=== PATIENT | female | born 1960 | race Caucasian/White ===

== ENCOUNTER 2018-08-15 17:02 | Inpatient (IN) ==
--- NOTE | 2018-08-15 17:26 | ED ---
HPI General Chief Complaint: Chest Pain Stated Complaint: chest pain Time Seen by Provider: 08/15/18 17:09 History of Present Illness HPI narrative: Patient is a 58-year-old female with no significant past medical history, presented to the emergency room for chest pain radiating to her jaw, started an hour and half ago, constant. 7 out of 10 in intensity, with minimal shortness of breath. She denies fever, cough, abdominal pain. Pain is not reproducible, no changes with movement or deep breath. EKG shows ST depression in lateral leads. Related Data Home Medications Medication Instructions Recorded Confirmed No Known Home Medications 08/15/18 08/15/18 Allergies Allergy/AdvReac Type Severity Reaction Status Date / Time codeine Allergy Mild NAUSEA Verified 08/15/18 17:11 Review of Systems ROS: all other systems reviewed are negative Cardiovascular Reports chest pain and Reports chest pain at rest [facility] Medical History Medical History Patient denies medical problems (Acute) Surgical History Surgical History No history of previous surgery (Acute) Social History Social History Substance History: No History of Abuse Smoking Status: Current every day smoker Tobacco Type: Cigarettes How Often Do You Have a Drink Containing Alcohol: 2 to 4 times a month Recent Travel in [facility] within the Last 8 Weeks: No Recent Out of Country Travel within the Last 8 Weeks: No Immunization History Tetanus Immunization: Unsure Exam Narrative Exam Narrative: GENERAL: 58-year-old female in no apparent distress. SKIN: Focused skin assessment warm/dry. HEAD: Atraumatic. Normocephalic. EYES: Pupils equal and round. No scleral icterus. No injection or drainage. ENT: No nasal bleeding or discharge. Mucous membranes pink and moist. NECK: Trachea midline. No JVD. CARDIOVASCULAR: Regular rate and rhythm. RESPIRATORY: No accessory muscle use. Clear to auscultation. Breath sounds equal bilaterally. GASTROINTESTINAL: Abdomen soft, non-tender, nondistended. Hepatic and splenic margins not palpable. MUSCULOSKELETAL: No obvious deformities. No clubbing. No cyanosis. No edema. NEUROLOGICAL: Awake and alert. No obvious cranial nerve deficits. Motor grossly within normal limits. Normal speech. PSYCHIATRIC: Appropriate mood and affect; insight and judgment normal. Course Initial Documented Vital Signs Pulse Rate 71 08/15/18 17:05 Last Documented Vital Signs Pulse Rate 71 08/15/18 18:37 Respiratory Rate 18 08/15/18 18:37 Blood Pressure 114/71 08/15/18 18:37 Pulse Oximetry 96 08/15/18 18:37 Medical Decision Making MDM Narrative Medical decision making narrative: 58-year-old female presented with chest pain did not seem to have jaw, with minimal dyspnea for the last an hour and half. Aspirin and nitroglycerin given. Cardiac workup ordered. Reevaluation is pending. 1820: EKG shows ST depression in anterior lateral leads, first set of troponin is negative pain significantly improved, case discussed with [facility] accepted for observation. Medical Screen Exam Complete: Yes Emergency Medical Condition: Yes Differential Diagnosis Differential Diagnosis: Chest pain rule out ACS versus pulmonary embolism versus gastritis. Lab Data Result diagrams: 08/15/18 17:30 08/15/18 17:30 Lab Results 08/15/18 08/15/18 08/15/18 Range/Units 17:30 17:30 17:30 CBC w Diff Auto diff final WBC 7.8 (4.0-11.0) th/mm3 RBC 4.64 (4.00-5.30) mil/mm3 Hgb 14.7 (11.6-15.3) gm/dL Hct 42.3 (35.0-46.0) % MCV 91.1 (80.0-100.0) fL MCH 31.7 (27.0-34.0) pg MCHC 34.8 (32.0-36.0) % RDW 13.5 (11.6-17.2) % Plt Count 248 (150-450) th/mm3 MPV 8.2 (7.0-11.0) fL Neut % (Auto) 58.5 (16.0-70.0) % Lymph % (Auto) 29.8 (9.0-44.0) % [place] % (Auto) 8.3 H (0.0-8.0) % Eos % (Auto) 2.7 (0.0-4.0) % Baso % (Auto) 0.7 (0.0-2.0) % Neut # (Auto) 4.6 (1.8-7.7) th/mm3 Lymph # (Auto) 2.3 (1.0-4.8) th/mm3 [place] # (Auto) 0.6 (0.0-0.9) th/mm3 Eos # (Auto) 0.2 (0.0-0.4) th/mm3 Baso # (Auto) 0.1 (0.0-0.2) th/mm3 WBC Differential . Differential Comment . D-Dimer Quant (PE/DVT) 0.22 (0.00-0.50) mg/L FEU Sodium 139 (136-145) meq/L Potassium 3.3 L (3.5-5.1) meq/L Chloride 105 (98-107) meq/L Carbon Dioxide 25.2 (21.0-32.0) meq/L Anion Gap 9 (5-15) meq/L BUN 18 (7-18) mg/dL Creatinine 0.83 (0.50-1.00) mg/dL Estimated GFR 71 L (>89) mL/min Random Glucose 115 H (74-106) mg/dL Calcium 8.9 (8.5-10.1) mg/dL Total Bilirubin 0.3 (0.2-1.0) mg/dL AST 21 (15-37) U/L ALT 28 (10-53) U/L Alkaline Phosphatase 63 (45-117) U/L Troponin I Less than 0.02 L (0.02-0.05) ng/mL B-Natriuretic Peptide (0-100) pg/mL Total Protein 7.0 (6.4-8.2) g/dL Albumin 3.6 (3.4-5.0) g/dL 08/15/18 Range/Units 17:30 CBC w Diff WBC (4.0-11.0) th/mm3 RBC (4.00-5.30) mil/mm3 Hgb (11.6-15.3) gm/dL Hct (35.0-46.0) % MCV (80.0-100.0) fL MCH (27.0-34.0) pg MCHC (32.0-36.0) % RDW (11.6-17.2) % Plt Count (150-450) th/mm3 MPV (7.0-11.0) fL Neut % (Auto) (16.0-70.0) % Lymph % (Auto) (9.0-44.0) % [place] % (Auto) (0.0-8.0) % Eos % (Auto) (0.0-4.0) % Baso % (Auto) (0.0-2.0) % Neut # (Auto) (1.8-7.7) th/mm3 Lymph # (Auto) (1.0-4.8) th/mm3 [place] # (Auto) (0.0-0.9) th/mm3 Eos # (Auto) (0.0-0.4) th/mm3 Baso # (Auto) (0.0-0.2) th/mm3 WBC Differential Differential Comment D-Dimer Quant (PE/DVT) (0.00-0.50) mg/L FEU Sodium (136-145) meq/L Potassium (3.5-5.1) meq/L Chloride (98-107) meq/L Carbon Dioxide (21.0-32.0) meq/L Anion Gap (5-15) meq/L BUN (7-18) mg/dL Creatinine (0.50-1.00) mg/dL Estimated GFR (>89) mL/min Random Glucose (74-106) mg/dL Calcium (8.5-10.1) mg/dL Total Bilirubin (0.2-1.0) mg/dL AST (15-37) U/L ALT (10-53) U/L Alkaline Phosphatase (45-117) U/L Troponin I (0.02-0.05) ng/mL B-Natriuretic Peptide 8 (0-100) pg/mL Total Protein (6.4-8.2) g/dL Albumin (3.4-5.0) g/dL Imaging Data Radiologist's impression: Chest X-Ray 08/15/18 17:22 CONCLUSION: Mild increased interstitial markings are noted consistent with acute or chronic interstitial disease. Clinical correlation is recommended. ECG Data EKG Prior to Arrival: No Attestation: I personally reviewed and interpreted this ECG as follows: Prior ECG tracings: available for review Interpretation: Normal sinus rhythm at rate 71, no ST elevation, ST depression in anterior lateral leads consider anterior lateral ischemia. Unable to compared to previous EKG. Discharge Plan Discharge Disposition Patient Disposition: ED Admit(ED Internal Use Only) Discharge Condition Condition: Fair Discharge Order Discharge Orders: ED Use Only Admit Order (Routine); Ordered 08/15/18 Ordered By: Anton Valenzuela Physicians Team ED Provider: Anton Valenzuela Primary Care Provider: Primary Care Homa De Los Santos Attending Provider: Mario Bell Status ED Status: Admitted Observation Patient
[2018-08-15 17:38] LABS: Baso # (Auto) 0.1 th/mm3 (0.0-0.2); Baso % (Auto) 0.7 % (0.0-2.0); Eos # (Auto) 0.2 th/mm3 (0.0-0.4); Eos % (Auto) 2.7 % (0.0-4.0); Hematocrit 42.3 % (35.0-46.0); Hemoglobin 14.7 gm/dL (11.6-15.3); Lymph # (Auto) 2.3 th/mm3 (1.0-4.8); Lymph % (Auto) 29.8 % (9.0-44.0); Mean Corpuscular HGB Conc 34.8 % (32.0-36.0); Mean Corpuscular Hemoglobin 31.7 pg (27.0-34.0); Mean Corpuscular Volume 91.1 fL (80.0-100.0); Mean Platelet Volume 8.2 fL (7.0-11.0); Mono # (Auto) 0.6 th/mm3 (0.0-0.9); Mono % (Auto) 8.3 % (0.0-8.0); Neut # (Auto) 4.6 th/mm3 (1.8-7.7); Neut % (Auto) 58.5 % (16.0-70.0); Platelet Count 248 th/mm3 (150-450); Red Blood Count 4.64 mil/mm3 (4.00-5.30); Red Cell Distribution Width 13.5 % (11.6-17.2); White Blood Count 7.8 th/mm3 (4.0-11.0)
[2018-08-15 17:48] LABS: Chloride 105 meq/L (98-107); Potassium 3.3 meq/L (3.5-5.1); Sodium 139 meq/L (136-145)
[2018-08-15 17:49] LABS: Calcium 8.9 mg/dL (8.5-10.1)
[2018-08-15 17:50] LABS: Anion Gap 9 meq/L (5-15); Carbon Dioxide 25.2 meq/L (21.0-32.0)
[2018-08-15 17:51] LABS: Albumin 3.6 g/dL (3.4-5.0); Glucose,Random 115 mg/dL (74-106)
[2018-08-15 17:52] LABS: Blood Urea Nitrogen 18 mg/dL (7-18)
[2018-08-15 17:55] LABS: Alanine Aminotransferase 28 U/L (10-53); Aspartate Aminotransferase 21 U/L (15-37); Glomerular Filtration Rate 71 mL/min (>89)
[2018-08-15 17:57] LABS: Alkaline Phosphatase 63 U/L (45-117)
--- NOTE | 2018-08-15 17:59 | XR ---
EXAM DATE: 08/15/2018 5:54 PM EST AGE/SEX: 58 years / Female INDICATIONS: Patient complains of chest pain. CLINICAL DATA: This is the patient's initial encounter. Patient reports that signs and symptoms have been present for 1 day and indicates a pain score of 5/10. MEDICAL/SURGICAL HISTORY: None. None. COMPARISON: No prior exams available for comparison. FINDINGS: Mild increased interstitial markings are noted consistent with acute or chronic interstitial disease. Clinical correlation is recommended. The heart is normal. No focal alveolar consolidation is noted. No pulmonary edema is noted. CONCLUSION: Mild increased interstitial markings are noted consistent with acute or chronic interstitial disease. Clinical correlation is recommended. Electronically signed by: Aldo Doty MD Board Certified Radiologist 08/15/2018 5:58 PM EST
[2018-08-15] MEDS ORDERED: Acetaminophen 325 MG Tablet PO PRN (18:28)
[2018-08-15] MEDS ORDERED: Bisacodyl 10 MG Supp RECTAL PRN (18:28)
[2018-08-15] MEDS: Senna/Docusate Sodium 8.6/50 MG Tablet PO SCH (22:32)
[2018-08-15] MEDS ORDERED: Heparin 10,000 UNITS/10 ML Vial (for IV use) IV.PUSH STA (23:20)
[2018-08-15] MEDS ORDERED: Heparin Drip 25,000 UNIT/250 ML BAG IV.CONT PRN (23:20)
[2018-08-16 00:21] LABS: Activated Partial Thrombo Time 27.6 sec (23.4-31.7); Prothrombin Time 10.1 sec (9.8-11.6)
[2018-08-16] MEDS ORDERED: Chlorhexidine Gluconate 2% 1 Pack (2 Cloths) TOPICAL PRN (04:00)
--- NOTE | 2018-08-16 05:42 | P.HPIM ---
History of Present Illness Service: [facility] Primary Care Physician: No Primary Care Physician Chief Complaint: Chest pain History of Present Illness: 58-year-old female with a history of tobacco abuse presented to the ED with complaints of chest pain. Patient states 1 hour prior to arrival to the ER she had constant, 10/10, substernal chest pain, pressure like, that radiated to her jaw with associated nausea, vomiting, headache and shortness of breath. At the ER she received 2 doses of sublingual nitroglycerin that resolved her pain. Currently on examination patient is pain- free. She is a pack a day smoker but is wanting to quit. She denies any recent illness no fever or chills. Inpatient Certification Inpatient Certification: I certify that the inpatient services were ordered in accordance with Medicare regulations governing the order. This includes certification that hospital inpatient services are reasonable and necessary and in the case of services not specified as inpatient-only under 42 CFR 419.22(n), that they are appropriately provided as inpatient services in accordance to with the 2-midnight benchmark under 43 CFR 412.3(e) Estimated Total Length of Stay (Days): 2 Plans for Post Hospital Care: Home Review of Systems Review of Systems: all other systems reviewed are negative [facility]LY [facility], [facility] Medical History Medical History Patient denies medical problems (Acute) Surgical History Surgical History No history of previous surgery (Acute) Family History Family History Mother Heart disease Father Heart disease Social History Social History Substance History: No History of Abuse Second Hand Smoke Exposure: Yes Smoking Status: Current every day smoker Tobacco Type: Cigarettes Packs Per Day: 1 Cigarettes Per Day: 20.0 How Often Do You Have a Drink Containing Alcohol: 2 to 4 times a month Recent Travel in [facility] within the Last 8 Weeks: No Recent Out of Country Travel within the Last 8 Weeks: No Immunization History Tetanus Immunization: Unsure Hx Influenza Vaccine This Season: No Medications and Allergies Allergies Allergy/AdvReac Type Severity Reaction Status Date / Time codeine Allergy Mild NAUSEA Verified 08/15/18 17:11 Home Medications Medication Instructions Recorded Confirmed Type No Known Home Medications 08/15/18 08/15/18 History Active Medications: Active Medications Acetaminophen (Tylenol) 650 mg PO Q4H PRN PRN Reason: Temp > 100.4 Al Hydroxide/Mg Hydroxide (Milk Of Magnesia Liq) 30 ml PO Q12H PRN PRN Reason: Mild Constipation Bisacodyl (Dulcolax Supp) 10 mg RECTAL DAILY PRN PRN Reason: SEVERE CONSITIPATION Chlorhexidine Gluconate (Chlorhexidine 2% Cloth) 3 pack TOPICAL DAILY@0400 [facility] Stop: 08/21/18 03:59 Chlorhexidine Gluconate (Chlorhexidine 2% Cloth) 3 pack TOPICAL DAILY@0400 PRN PRN Reason: Extra cloth needed Stop: 08/21/18 03:59 Heparin Sodium/Dextrose (Heparin/D5w 25,000 U/250 Ml) 25,000 unit in 250 mls @ 0 mls/hr IV.CONT TITRATE PRN; Protocol PRN Reason: Per Protocol Last Admin: 08/16/18 00:32 Dose: 1,000 units/hr, 10 mls/hr Lactulose (Lactulose Liq) 30 ml PO DAILY PRN PRN Reason: SEVERE CONSITIPATION Nitroglycerin (Nitrostat Sl) 0.4 mg SL Q5M PRN PRN Reason: CHEST PAIN Ondansetron HCl (Zofran Inj) 4 mg IV.PUSH Q6H PRN PRN Reason: NAUSEA OR VOMITING Senna/Docusate Sodium (Kristina-Colace) 1 tab PO BID [facility] Last Admin: 08/15/18 22:32 Dose: Not Given Sennosides (Senokot) 17.2 mg PO Q12H PRN PRN Reason: Moderate Constipation Sodium Chloride (Ns Flush) 2 ml IV.FLUSH UNSCH PRN PRN Reason: FLUSH AFTER USING IV ACCESS Last Admin: 08/15/18 17:59 Dose: 2 ml Sodium Chloride (Ns Flush) 2 ml IV.FLUSH BID [facility] Last Admin: 08/15/18 22:31 Dose: Not Given Sodium Chloride (Ns Flush) 2 ml IV.FLUSH PRN PRN PRN Reason: FLUSH AFTER USING IV ACCESS Physical Exam Vital signs: Last Vital Signs Temp 98 F 08/16/18 04:00 Pulse 59 L 08/16/18 04:00 Resp 20 08/16/18 04:00 BP 121/65 08/16/18 04:00 Pulse Ox 96 08/16/18 04:00 Intake & Output 08/13/18 08/14/18 08/15/18 08/16/18 06:59 06:59 06:59 06:59 Weight 82 kg Narrative: GENERAL: Well-nourished patient in no acute distress SKIN: Warm and dry. HEAD: Normocephalic. EYES: No scleral icterus. No injection or drainage. NECK: Supple, trachea midline. No JVD or lymphadenopathy. CARDIOVASCULAR: Regular rate and rhythm without murmurs, gallops, or rubs. RESPIRATORY: Breath sounds equal bilaterally. No accessory muscle use. GASTROINTESTINAL: Abdomen soft, non-tender, nondistended. MUSCULOSKELETAL: No cyanosis, or edema. Results Labs CBC & Chem 7: 08/15/18 17:30 08/15/18 17:30 Imaging Impressions Chest X-Ray 08/15/18 17:22 CONCLUSION: Mild increased interstitial markings are noted consistent with acute or chronic interstitial disease. Clinical correlation is recommended. Caprini VTE Risk Assessment Caprini VTE Risk Assessment: Moderate/High Risk (score >= 2) Caprini Risk Assessment Model: Point Value = 1 Point Value = 2 Point Value = 3 Point Value = 5 Age 41-60 Minor surgery BMI > 25 kg/m2 Swollen legs Varicose veins or History of unexplained or recurrent spontaneous Oral contraceptives or hormone replacement Sepsis (< 1 month) Serious lung disease, including pneumonia (< 1 month) Abnormal pulmonary function Acute myocardial infarction Congestive heart failure (< 1 month) History of inflammatory bowel disease Medical patient at bed rest Age 61-74 Arthroscopic surgery Major open surgery (> 45 min) Laparoscopic surgery (> 45 min) Malignancy Confined to bed (> 72 hours) Immobilizing plaster cast Central venous access Age >= 75 History of VTE Family history of VTE Factor V Leiden Prothrombin [id number] Lupus anticoagulant Anticardiolipin antibodies Elevated serum homocysteine Heparin-induced thrombocytopenia Other congenital or acquired thrombophilia Stroke (< 1 month) Elective arthroplasty Hip, pelvis, or leg fracture Acute spinal cord injury (< 1 month) Prophylaxis Regimen: Total Risk Factor Score Risk Level Prophylaxis Regimen 0-1 Low Early ambulation 2 Moderate Order ONE of the following: *Sequential Compression Device (SCD) *Heparin 5000 units SQ BID 3-4 Higher Order ONE of the following medications: *Heparin 5000 units SQ TID *Enoxaparin/Lovenox 40 mg SQ daily (WT < 150 kg, CrCl > 30 mL/min) *Enoxaparin/Lovenox 30 mg SQ daily (WT < 150 kg, CrCl > 10-29 mL/min) *Enoxaparin/Lovenox 30 mg SQ BID (WT < 150 kg, CrCl > 30 mL/min) AND/OR *Sequential Compression Device (SCD) 5 or more Highest Order ONE of the following medications: *Heparin 5000 units SQ TID (Preferred with Epidurals) *Enoxaparin/Lovenox 40 mg SQ daily (WT < 150 kg, CrCl > 30 mL/min) *Enoxaparin/Lovenox 30 mg SQ daily (WT < 150 kg, CrCl > 10-29 mL/min) *Enoxaparin/Lovenox 30 mg SQ BID (WT < 150 kg, CrCl > 30 mL/min) AND *Sequential Compression Device (SCD) Assessment and Plan Plan 58-year-old female with a history of tobacco abuse resented to the ER with complaints of chest pain. NSTEMI, acute Serial troponin 0.02-->1.8-->12.7 EKG reviewed shows sinus rhythm with no ST elevation -Heparin drip -Monitor telemetry -Consult to cardiology -NPO Tobacco abuse, chronic -Encouraged to quit DVT prophylaxis: Heparin and SCDs Discussed Condition With: Patient, RN H&P: Quality VTE Deep Vein Thrombosis/Pulmonary Embolism Present on Admission: No
[2018-08-16] MEDS: Chlorhexidine Gluconate 2% 1 Pack (2 Cloths) TOPICAL SCH (05:44)
[2018-08-16 06:32] LABS: Hematocrit 41.3 % (35.0-46.0); Hemoglobin 14.4 gm/dL (11.6-15.3); Mean Corpuscular HGB Conc 34.9 % (32.0-36.0); Mean Corpuscular Hemoglobin 32.6 pg (27.0-34.0); Mean Corpuscular Volume 93.5 fL (80.0-100.0); Mean Platelet Volume 8.9 fL (7.0-11.0); Platelet Count 222 th/mm3 (150-450); Red Blood Count 4.42 mil/mm3 (4.00-5.30); Red Cell Distribution Width 14.5 % (11.6-17.2); White Blood Count 11.4 th/mm3 (4.0-11.0)
--- NOTE | 2018-08-16 10:02 | P.PNIM ---
Patient was seen this morning following an admission for chest pain earlier this morning. Her troponins trended upward last night from 0.02-1.86-12.07. She denies any current active chest pain. Symptoms are relieved with nitroglycerin. Cardiology consult was placed and she will likely be a candidate for heart catheterization. She is being kept n.p.o. I took the time to explain the procedure to her. She has leukocytosis that is likely stress related, will follow with labs tomorrow morning.
--- NOTE | 2018-08-16 10:27 | MB ---
cc: Skip Siu MD DATE: 08/16/2018 HISTORY OF PRESENT ILLNESS: Isai is a very pleasant 58-year-old lady with no significant past medical history, who developed severe chest pain, shortness of breath yesterday, came to the ER. She had a troponin initially which was elevated. Second troponin was 12. Currently, she is asymptomatic at the bedside. Denies chest pain, fevers, chills, cough, GI or bleeding, PND, orthopnea, syncope, or dizziness. PAST MEDICAL HISTORY: As per history of present illness. ALLERGIES: CODEINE. SOCIAL HISTORY: She smokes every day. She drinks alcohol 2-4 times a month. MEDICATIONS: In the hospital, heparin drip. She received aspirin 162 mg x1 on 08/15/2018 at 1722. PHYSICAL EXAMINATION: VITAL SIGNS: Pulse 52, blood pressure 112/56, respiratory rate 17, saturations 94% on 2 L nasal cannula, temperature 98. Her initial respiratory rate was 31. Most recently documented respiratory rate was 17. GENERAL: She is alert and oriented x3, in no acute distress. NECK: Supple. No JVD. No bruit. CARDIOVASCULAR: S1, S2. No murmurs, rubs, or gallops. LUNGS: Clear to auscultation bilaterally. ABDOMEN: Soft, nontender, nondistended with positive bowel sounds. EXTREMITIES: No lower extremity edema. DIAGNOSTIC DATA: Chest x-ray shows mild increased interstitial markings noted consistent with acute or chronic interstitial disease. Clinical correlation is recommended. EKG: Normal sinus rhythm at 71 beats per minute. There is 1 to [address] segment depression in leads V3, V4, V5, V6. T-wave inversion in V1, V2. Repeat EKG: Normal sinus rhythm at [address] segment depression of 0.5-1 mm in leads V3, V4, V5, V6. T-wave inversion of 0.5 mm in V1, V2. A third EKG done at 12:45 a.m., 08/16/2018: Normal sinus rhythm at 64 beats per minute with nonspecific ST-T wave changes. Her white count is 11.4, hemoglobin 14.4, hematocrit 41.3, platelet count 222. INR is 1.0, PTT is 52.5 at 5:04 a.m. today 08/15/2018. Sodium 139, potassium 3.3, chloride 105, bicarbonate 25.2, BUN 18, creatinine 0.83. Initial troponin was less than 0.02 at 1730. Second troponin at 8 was 1.86. Troponin at 12:43 a.m., 08/16/2018, is 12.70. BNP is 8. DIAGNOSES: 1. Noe-ER-kdvmtomyi myocardial infarction. 2. Tobacco abuse. DISCUSSION: Left heart catheterization is urgently medically necessary due to non-STEMI with ischemic changes in the anterolateral distribution. The patient is currently asymptomatic. Agree with aspirin and heparin. I have strongly advised the patient to stop smoking. Further recommendations will be based on the details of her left heart catheterization. Skip Siu MD AWC/rm , 10:11 AM , 10:17 AM
[2018-08-16] MEDS ORDERED: fentaNYL Citrate Inj 100 MCG/2 ML Ampul ONE (10:48)
[2018-08-16] MEDS ORDERED: Heparin/NS PF Inj 1,000 ML ONE (10:48)
[2018-08-16] MEDS ORDERED: Heparin 10,000 UNITS/10 ML Vial (for IV use) ONE (10:49)
[2018-08-16] MEDS ORDERED: Iohexol 350 MG/ML 100 ML Vial (for Cath Lab) IVCONTRAST ONE (11:00)
[2018-08-16] MEDS: Senna/Docusate Sodium 8.6/50 MG Tablet PO SCH ×2 (11:24→20:12)
[2018-08-16] MEDS ORDERED: Heparin Drip 25,000 UNIT/250 ML BAG IV.CONT ONE (11:59)
[2018-08-16] MEDS ORDERED: Tirofiban Inj 12,500 MCG/250 ML PLAST..BAG ONE (12:32)
[2018-08-16] MEDS ORDERED: Atropine Inj 1 MG/10 ML Syringe ONE (13:00)
--- NOTE | 2018-08-16 13:04 | CATHPROC ---
[employer] HIS Report Study Information Study Number Admission Scheduled Start Study Start [id number] Aug 15 2018 11:45PM 08/16/2018 Aug 16 2018 10:34AM Study Type [place] Service Left/Possible PCI Cardiac Catheterization Admit Source Facility Department Emergency department [facility] - Gas Pump Attendant Physician and Clinical Staff Initial Skip Cornelius Levi Maker Kassie Billy,RN Recorder Ava Downing,RT(R) Eleonora Goss,FAITH TECH2 Procedures Performed Procedure Location (Site) Vessel Name Coronary Angiograms LCA Left Coronary Coronary Angiograms RCA Right Coronary L Heart Cath LV Gram-hand inj. LV LV Ventricle PTCA CIRC Dist CIRC PTCA CIRC Prox CIRC PTCA ADD ON'S Radiation Dosage Stent CIRC Dist CIRC Stent CIRC Mid CIRC Stent CIRC Prox CIRC Wire insertion Fem Art (right) Femoral Art Equipment Time Rehabilitation Services Counselor Description Size Mfg Part Number Used/Scraped [id number] 11:05 [employer] WIRE, ASAHI PROWATER 180CM 180CM Used *[id number] 29250-22 11:44 [employer] WIRE, ASAHI PROWATER 180CM 180CM Used *[id number] 74791-73 11:50 [employer] WIRE, ASAHI PROWATER 180CM 180CM Used *[id number] 83236-07 11:57 [employer] WIRE, ASAHI PROWATER 180CM 180CM Used *[id number] 52896-57 12:18 [employer] WIRE, ASAHI PROWATER 180CM 180CM Used *[id number] 65556-08 11:35 [employer] WIRE, ASAHI PROWATER 180CM 180CM Used *[id number] TRANSDUCER, TRUWAVE [id number] 10:35 PEARL HOLLEY * Used W/STOCKCOCK *[id number] 11:15 [employer] WIRE, CHOICE PT 182CM 182CM Used *[id number] 12:21 [employer], CHOICE PT 182CM 182CM Used *[id number] 12:22 [employer] WIRE, CHOICE PT 182CM 182CM Used *[id number] [phone] *1884764 538-421 *2989847 [phone] *[id number] [id number] 10:35 MED[employer] BLANKET,WARM AIR CCL * Used *[id number] 10:35 [email or web address] INDUSTRIES PACK, CCL CUSTOM * Used *[id number] [id number] 10:35 MEDLINE PACER PEN, SKIN DUAL W/ RULER * Used *[id number] [id number] 12:23 [employer] BALLOON, 2.5 X 10MM EUPHORA 10MM Used *[id number] 11:15 [employer] BALLOON, 2.5 X 12MM EUPHORA 12MM Used *8060155 [id number] 11:18 [employer] BALLOON, 3.0 X 15MM EUPHORA 15MM Used *8648078 [id number] 12:26 [employer] STENT, 2.5 12 INTEGRITY 2.5 12 Used *0484715 [id number] 11:27 [employer] STENT, 4.0 12 INTEGRITY 4.0 12 Used *8889108 [id number] 11:36 [employer] STENT, 4.0 15 INTEGRITY 4.0 15 Used *2326642 [id number] 11:15 [employer]TR[employer] STENT, 4.0 18 INTEGRITY 4.0 18 Used *1490181 [id number] 11:05 [employer] MEDICAL 30 ALBERT INDEFLATOR Used *[id number] [id number] 10:35 [employer] Score WIRE, 3MMJ .035 180CM 180CM Used *5346934 [id number] 10:35 NAMIC MANIFOLD, 4 PORT * Used *6592556 10:35 [employer] OMNIPAQUE, 350 MG, 150ML 150ML [id number] Used [id number] 10:35 TERUMO MEDICAL SHEATH, FR4 TERUMO (10CM) FR 4 Used *1495042 [id number] 11:05 [employer] MEDICAL SHEATH, FR6 TERUMO (10CM) FR 6 Used *[id number] Equipment Model, Serial, Lot Number and Expiration Data Description Model Number Serial Number Lot Number Expiration Date STENT, 2.5 12 INTEGRITY [id number] 12-19-2019 STENT, 4.0 12 INTEGRITY [id number] 12-31-2018 STENT, 4.0 15 INTEGRITY [id number] 05-15-2019 STENT, 4.0 18 INTEGRITY [id number] 05-17-2019 WIRE, CHOICE PT 182CM [id number] 06-20-2020 History: Allergies Allergy Reaction codeine NAUSEA History: Risk Factors Family History of Hypertension Dyslipidemia Previous IA Previous Heart Failure Premature CAD No No No No No Prior Valve Prior PCI Prior CABG Surgery No No No Cerebrovascular Peripheral Artery Chronic Lung On Dialysis Diabetes Disease Disease Disease No No No No No History: Risk Factors Selection Items Current Smoker History: Symptoms/Diagnosis Selection Items Chest pain History: Stress Tests Stress or Imaging Studies Performed No History: Other Current Smoker Method Yes Cigarettes Labs Hgb (g/dl) Hct (%) WBC (l/cumm) Platelets (thousands) 11.60-17.00 35.00-51.00 4.00-11.00 150.00-450.00 14.4 41.3 11.4 222 Glucose (mg/dl) BUN (mg/dl) Creatinine (mg/dl) BUN:Creatinine (1:x) 74.00-106.00 7.00-18.00 0.50-1.30 10.00-20.00 115 71 0.8 88.8 Na (meq/l) K (meq/l) 136.00-145.00 3.50-5.10 139 3.3 INR (PTT:PT) 0.90-1.10 1 Troponin I (ng/ml) CPK-MB (ng/ML) 0.02-0.05 0.50-3.60 12.7 Not Drawn Medication Medication Total Dose (Bolus/Oral) Medication Total Dosage/Unit 1% XYLOCAINE 20 mL AGGRASTAT BOLUS 42 mL (Bolus) ASPIRIN 162 mg ATROPINE 1 mg FENTANYL 75 mcg HEPARIN 7300 units NTG (IC) 200 mcg VERSED 1 mg ZOFRAN 4 mg Medications (Bolus/Oral) Medication Time Given Dosage/Unit Administered By Reason 08/16/2018 10:56:40 VERSED 1 mg Kassie Billy AM 1 mg VERSED given in lab by Kassie Billy, STEVEN via Peripheral IV. Ordered by Skip Cadena. 08/16/2018 10:57:00 FENTANYL 25 mcg Kassie Billy AM 25 mcg FENTANYL given in lab by Kassie Billy, STEVEN via Peripheral IV. Ordered by Skip Cadena. 08/16/2018 10:58:19 1% XYLOCAINE 20 mL Skip Cadena AM 20 mL 1% XYLOCAINE given in lab by Skip Cadena in Right Groin via Subcutaneous. 08/16/2018 11:07:15 HEPARIN 5800 units Kassie Billy AM 5800 units HEPARIN given in lab by Kassie Billy, STEVEN via Peripheral IV. 08/16/2018 11:25:09 NTG (IC) 200 mcg Eleonora Magallon AM 200 mcg NTG (IC) given in lab by Eleonora Magallon RCIS TECH2 via Intra-coronary. 08/16/2018 11:39:28 ATROPINE 1 mg Kassie Billy AM 1 mg ATROPINE given in lab by Kassie Billy RN via Peripheral IV. 08/16/2018 11:44:16 ASPIRIN 162 mg Kassie Billy AM 162 mg ASPIRIN given in lab by Kassie Billy RN via Subcutaneous. 08/16/2018 11:51:28 FENTANYL 25 mcg Kassie Billy AM 25 mcg FENTANYL given in lab by Kassie Billy RN via Peripheral IV. 08/16/2018 11:57:39 HEPARIN 1500 units Kassie Billy AM 1500 units HEPARIN given in lab by Kassie Billy RN via Peripheral IV. 08/16/2018 11:58:11 ZOFRAN 4 mg Kassie Billy AM 4 mg ZOFRAN given in lab by Kassie Billy RN via Central IV. 08/16/2018 12:01:00 FENTANYL 25 mcg Kassie Billy PM 25 mcg FENTANYL given in lab by Kassie Billy RN via Peripheral IV. 08/16/2018 12:37:44 AGGRASTAT BOLUS 42 mL (Bolus) Kassie Billy PM 42 mL (Bolus) AGGRASTAT BOLUS given in lab by Kassie Billy RN via Peripheral IV. Using [Solution Name]. Medication (Drip) Medication Time Given Dosage/Unit Concentration/Unit Diluent (ml) Solution 08/16/2018 12:40:28 AGGRASTAT DRIP 0.74 mL/hr 12.5 mL 250 NaCl .9 PM 0.74 mL/hr AGGRASTAT DRIP given in lab by Kassie Billy RN via Peripheral IV. Pump/Drip Flow = 14. 8 ml/hr using NaCl .9 with a concentration of 12.5 mL in 250 ml. DOPAMINE DRIP 08/16/2018 12:43:03 0 units/hr 50 100 D5W STOPPED PM 0 units/hr DOPAMINE DRIP STOPPED given in lab by Kassie Billy RN. Pump/Drip Flow = 0 ml/hr using D5W with a concentration of 50 in 100 ml. 08/16/2018 11:53:26 DOPAMINE HCL 1.473 mcg/kg/min 800 mg 500 D5W AM 1.473 mcg/kg/min DOPAMINE HCL given in lab by Kassie Billy RN via Peripheral IV. Pump/Drip Flow = 10 ml/hr using D5W with a concentration of 800 mg in 500 ml. 08/16/2018 12:09:15 DOPAMINE HCL 5 mcg/kg/min 800 mg 500 D5W PM 5 mcg/kg/min DOPAMINE HCL given in lab by Kassie Billy RN via Peripheral IV. Pump/Drip Flow = 33. 94 ml/hr using D5W with a concentration of 800 mg in 500 ml. 08/16/2018 12:08:00 HEPARIN DRIP 1000 units/hr 20890 units 250 D5W PM 1000 units/hr HEPARIN DRIP given in lab by Kassie Billy RN via Peripheral IV. Pump/Drip Flow = 10 ml/hr [place] [address] units [place] 250 ml. 08/16/2018 11:35:18 IV Bolus 500 mL (Bolus) 1000 NaCl .9 AM 500 mL (Bolus) IV Bolus given in lab by Kassie Billy RN via Peripheral IV. Using NaCl .9. 08/16/2018 10:48:01 IV Solutions 0 mL (IV) 500 NaCl .9 AM IV Solutions given in lab by Kassie Billy RN in Right Hand via Peripheral IV. Pump/Drip Flow = 20 ml/hr using NaCl .9. Ordered by Skip Cadena. Initial Case Assessment Cardiovascular HR Rhythm NIBP Chest Pain 51 reg 114/68 0 Edema Present Skin color Skin None Normal Warm Circulatory - Right Pulses Dorsalis Pedis Femoral 3 3 Scale (0,1,2,3,4,d) Circulatory - Left Pulses Dorsalis Pedis Femoral 3 3 Scale (0,1,2,3,4,d) Circulatory - Lower Extremities Color Lower Right Color Lower Left Normal Normal Neurological State Oriented to time-place- Alert Moves all extremities person Respiration - General Respiration Rate SpO2 (%) (B/min) 18 96 Final Case Assessment Cardiovascular HR Rhythm NIBP Chest Pain 92 reg 122/86 3 Edema Present Skin color Skin None Normal Warm Circulatory - Right Pulses Dorsalis Pedis Femoral 3 3 Scale (0,1,2,3,4,d) Circulatory - Left Pulses Dorsalis Pedis Femoral 3 3 Scale (0,1,2,3,4,d) Circulatory - Lower Extremities Color Lower Right Color Lower Left Normal Normal Neurological State Oriented to time-place- Alert Moves all extremities person Respiration - General Respiration Rate SpO2 (%) O2 (lpm) (B/min) 17 98 2 Chronological Log Time Study Chronological Log 10:33:42 Patient arrived via Bed. Vitals capture started with the following parameters, Patient=Adult, Interval=5 min, Initial Pr djnpbu=122 mmHg, 10:43:45 Deflation Rate=5 mmHg, Cuff placed on Right Arm 10:44:20 HR=51 bpm, BCSW=307/82 mmhg, SpO2=97.0 %, Resp=24 B/min, Pain=0, Mervin=10, Blanton=2 10:47:37 Reference ECG taken 10:47:52 Patient Name, D.O.B, / Armband Verified By R.N. 10:47:53 Consent signed by the physician and the patient and verified by the Gas Pump Attendant staff. 10:47:53 Pre-op and post- op instructions given; patient acknowledges understanding of instructions. 10:47:54 Verbal Stimulation=2 Physical Stimulation=2 Airway=2 Respiration=2 TOTAL=8. (0=absent, 1=li mited, 2=present) 10:47:57 Patient has been NPO for More than 6Hrs. 10:47:58 Skin Breakdown-none 10:48:00 A # 22 IV was noted in the Hand (right). Grade = 0 IV Solutions given in lab by Kassie Billy RN in Right Hand via Peripheral IV. Pump/Drip Medardo w = 20 ml/hr using NaCl 10:48:01 .9. Ordered by Skip Cadena. 10:48:03 History and physical on the chart or being dictated. Assessment: Initial Case, HR=51 BPM, Rhythm=reg, BZPL=728/68 mmhg, Chest Pain=0, Edema=None, [place] natali=Normal, Skin = Warm Right Pulses: Edgar Ped=3, Femoral=3 Left Pulses: Edgar Ped=3, Femoral=3 10:48:04 Lower Right Extremities: Color=Normal Lower Left Extremities: Color=Normal Neurological: State=Alert, Ox3, YEUNG Respiration: Resp=18 B/min, SpO2=96 % 10:48:06 Bilateral groins prepped with 2% chlorhexidine, and draped after a 3 minute waiting time. 10:49:21 HR=51 bpm, AUPE=563/68 mmhg, SpO2=95.0 %, Resp=33 B/min, Pain=0, Mervin=10, Blanton=2 10:51:24 MD arrived. 10:54:20 HR=79 bpm, GSYZ=413/73 mmhg, SpO2=95.0 %, Resp=24 B/min, Pain=0, Mervin=10, Blanton=2 10:56:04 Pressure channel 1 zeroed. 10:56:40 1 mg VERSED given in lab by Kassie Billy, STEVEN via Peripheral IV. Ordered by Javi Cadena. 10:57:00 25 mcg FENTANYL given in lab by Kassie Billy, STEVEN via Peripheral IV. Ordered by Skip Cadena. Time Out. Correct patient, correct procedure, correct physician, labs, allergies, and equipment verified with labor relations analyst 10:57:23 team present. Fire risk assesment completed (see hard stop sheet for coding). Time Out Conc urred by MD and individual staff in procedure. 10:57:27 Case Start 10:57:50 heparin discontinued in pts room at 10:30am 10:58:11 Verbal Stimulation=2 Physical Stimulation=2 Airway=2 Respiration=2 TOTAL=8. (0=absent, 1=li mited, 2=present) 10:58:19 20 mL 1% XYLOCAINE given in lab by Skip Cadena in Right Groin via Subcutaneous. 10:59:00 Access site was Right Femoral Artery. 10:59:23 HR=57 bpm, TUXU=438/66 mmhg, SpO2=93.0 %, Resp=19 B/min, Pain=0, Mervin=10, Blanton=2 11:00:12 A wire was inserted via Fem Art (right). 11:00:14 A SHEATH, FR4 TERUMO (10CM) FR 4 was advanced into the Fem Art (right) using the Percutaneo us technique. 11:00:35 Activated Clotting Time Drawn A JR 4.0 INFINITI CATHETER FR 4 was advanced over a wire. OMNIPAQUE, 350 MG, 150ML 150ML was us ed for 11:00:44 injections. Recorded Pressure: LV, HR=61, Condition=Condition 1 11:01:02 (Left Ventricle) LV 121/12/21 11:01:11 The LV was manually injected with 8 cc's and visualized. OMNIPAQUE, 350 MG, 150ML 150ML use d. Recorded Pressure: LV, Ao, HR=60, Condition=Condition 1 11:01:16 (Left Ventricle) LV 118/8/22, (Aorta) Ao 120/69/92 11:02:03 The RCA was injected and visualized at various angles. OMNIPAQUE, 350 MG, 150ML 150ML used . 11:02:53 Catheter was removed 11:03:04 ACT (Normal Range 90-180) = 128 A JL 4.0 INFINITI CATHETER FR 4 was advanced over a wire. OMNIPAQUE, 350 MG, 150ML 150ML was us ed for 11:03:56 injections. Recorded Pressure: Ao, HR=58, Condition=Condition 1 11:04:04 (Aorta) Ao 110/65/85 11:04:14 The LCA was injected and visualized at various angles. OMNIPAQUE, 350 MG, 150ML 150ML used . 11:04:20 HR=51 bpm, WETV=274/63 mmhg, SpO2=94.0 %, Resp=36 B/min, Pain=0, Mervin=10, Blanton=2 11:05:11 Catheter was removed 11:05:14 OMNIPAQUE, 350 MG, 150ML 150ML and 30 ALBERT INDEFLATOR added. A SHEATH, FR6 TERUMO (10CM) FR 6 was exchanged in the Fem Art (right). This was necessary in or irma to 11:06:57 accomodate a larger catheter. 11:07:15 5800 units HEPARIN given in lab by Kassie Billy, STEVEN via Peripheral IV. A XB 4.0 GUIDE CATHETER FR 6 was advanced over a wire. OMNIPAQUE, 350 MG, 150ML 150ML was used for 11:08:08 injections. 11:09:22 HR=66 bpm, NBZV=675/66 mmhg, SpO2=91.0 %, Resp=24 B/min, Pain=0, Mervin=10, Blanton=2 11:09:26 A WIRE, ASAFunidelia PROWATER 180CM 180CM was inserted via Fem Art (right). 11:14:23 HR=59 bpm, NIBP=97/58 mmhg, SpO2=92.0 %, Resp=25 B/min, Pain=0, Mervin=10, Blanton=2 11:14:49 The previous wire was exchanged for a WIRE, CHOICE PT 182CM 182CM. 11:14:58 A BALLOON, 2.5 X 12MM EUPHORA 12MM was inserted over WIRE, CHOICE PT 182CM 182CM via the CI RC Prox. A BALLOON, 2.5 X 12MM EUPHORA 12MM over a WIRE, CHOICE PT 182CM 182CM in the CIRC Prox was infl ated using 11:15:27 a 30 ALBERT INDEFLATOR at 14 albert for 14 sec. A BALLOON, 2.5 X 12MM EUPHORA 12MM over a WIRE, CHOICE PT 182CM 182CM in the CIRC Prox was infl ated using 11:15:48 a 30 ALBERT INDEFLATOR at 12 albert for 12 sec. 11:15:57 Balloon Removed. An STENT, 4.0 18 INTEGRITY 4.0 18 Bare Metal Stent was inserted through a XB 4.0 GUIDE CATHETER FR 6 over a 11:16:08 WIRE, CHOICE PT 182CM 182CM. 11:17:52 Delivery device removed 11:18:00 Stent not deployed. Stent removed and intact. 11:18:05 A BALLOON, 3.0 X 15MM EUPHORA 15MM was inserted over WIRE, CHOICE PT 182CM 182CM via the CI RC Prox. 11:18:21 Activated Clotting Time Drawn A BALLOON, 3.0 X 15MM EUPHORA 15MM over a WIRE, CHOICE PT 182CM 182CM in the CIRC Prox was infl ated using 11:19:17 a 30 ALBERT INDEFLATOR at 14 albert for 24 sec. 11:19:18 HR=60 bpm, LPZT=662/68 mmhg, SpO2=93.0 %, Resp=19 B/min, Pain=0, Mervin=10, Blanton=2 11:19:45 Balloon Removed. An STENT, 4.0 18 INTEGRITY 4.0 18 Bare Metal Stent was inserted through a XB 4.0 GUIDE CATHETER FR 6 over a 11:20:55 WIRE, CHOICE PT 182CM 182CM. A STENT, 4.0 18 INTEGRITY 4.0 18 was deployed using a 30 ALBERT INDEFLATOR at 14 atmospheres for 1 2 seconds in 11:21:05 the CIRC Prox. 11:21:55 Delivery device removed 11:22:50 ACT (Normal Range 90-180) = 264 11:23:31 The LCA was injected and visualized at various angles. OMNIPAQUE, 350 MG, 150ML 150ML used . 11:24:21 HR=63 bpm, RRAK=723/80 mmhg, SpO2=96.0 %, Resp=39 B/min, Pain=0, Mervin=10, Blanton=2 11:25:09 200 mcg NTG (IC) given in lab by Eleonora Magallon RCIS TECH2 via Intra-coronary. An STENT, 4.0 12 INTEGRITY 4.0 12 Bare Metal Stent was inserted through a XB 4.0 GUIDE CATHETER FR 6 over a 11:27:00 WIRE, CHOICE PT 182CM 182CM. 11:29:15 Stent not deployed. Stent removed and intact. 11:29:18 HR=73 bpm, RCCM=387/99 mmhg, SpO2=97.0 %, Resp=27 B/min, Pain=0, Mervin=10, Blanton=2 11:29:20 Catheter was removed 11:29:38 Case End (Physician broke scrub) 11:30:50 st elevation 11:31:51 physician scrubbed back in A XB 4.0 GUIDE CATHETER FR 6 was advanced over a wire. OMNIPAQUE, 350 MG, 150ML 150ML was used for 11:32:53 injections. 11:34:23 HR=61 bpm, NIBP=89/55 mmhg, SpO2=97.0 %, Resp=15 B/min, Pain=0, Mervin=10, Blanton=2 11:34:47 A WIRE, ASAHI PROWATER 180CM 180CM was inserted via Fem Art (right). 11:35:18 500 mL (Bolus) IV Bolus given in lab by Kassie Billy RN via Peripheral IV. Using NaCl . 9. An STENT, 4.0 15 INTEGRITY 4.0 15 Bare Metal Stent was inserted through a XB 4.0 GUIDE CATHETER FR 6 over a 11:35:56 WIRE, ASAHI PROWATER 180CM 180CM. A STENT, 4.0 15 INTEGRITY 4.0 15 was deployed using a 30 ALBERT INDEFLATOR at 12 atmospheres for 1 0 seconds in 11:38:06 the CIRC Mid. 11:39:18 st elevation 11:39:22 HR=50 bpm, NIBP=66/46 mmhg, SpO2=99.0 %, Resp=17 B/min, Pain=0, Mervin=10, Blanton=2 11:39:28 1 mg ATROPINE given in lab by Kassie Billy, STEVEN via Peripheral IV. A BALLOON, 2.5 X 12MM EUPHORA 12MM was inserted over WIRE, ASAHI PROWATER 180CM 180CM via the C IRC 11:39:44 Dist. 11:42:51 NIBP STAT measurement started. 11:43:52 HR=81 bpm, MDJY=422/71 mmhg, SpO2=95.0 %, Resp=17 B/min, Pain=0, Mervin=10, Blanton=2 11:44:16 162 mg ASPIRIN given in lab by Kassie Billy, STEVEN via Subcutaneous. 11:44:32 A WIRE, ASAHI PROWATER 180CM 180CM was inserted via Fem Art (right). An STENT, 4.0 15 INTEGRITY 4.0 15 Bare Metal Stent was inserted through a XB 4.0 GUIDE CATHETER FR 6 over a 11:46:09 WIRE, ASAHI PROWATER 180CM 180CM. A STENT, 4.0 15 INTEGRITY 4.0 15 was deployed using a 30 ALBERT INDEFLATOR at 9 atmospheres for 15 seconds in the 11:46:33 CIRC Mid. 11:48:42 Delivery device removed 11:49:03 2nd Wire removed 11:49:26 HR=75 bpm, NIBP=83/55 mmhg, XqJ5=437.0 %, Resp=9 B/min, Pain=0, Mervin=10, Blanton=2 11:49:51 A WIRE, ASAHI PROWATER 180CM 180CM was inserted via Fem Art (right). 11:51:28 25 mcg FENTANYL given in lab by Kassie Billy, RN via Peripheral IV. 1.473 mcg/kg/min DOPAMINE HCL given in lab by Kassie Billy, STEVEN via Peripheral IV. Pump/Drip Flow = 10 ml/hr 11:53:26 using D5W with a concentration of 800 mg in 500 ml. 11:54:21 HR=70 bpm, NIBP=85/59 mmhg, HsK5=994.0 %, Resp=70 B/min, Pain=0, Mervin=10, Blanton=2 11:57:39 1500 units HEPARIN given in lab by Kassie Billy RN via Peripheral IV. 11:57:56 dr salmeron consulted 11:58:11 4 mg ZOFRAN given in lab by Kassie Billy, STEVEN via Central IV. 11:58:48 A WIRE, ASAHI PROWATER 180CM 180CM was inserted via Fem Art (right). 11:59:47 HR=93 bpm, IPRY=172/78 mmhg, SpO2=95.0 %, Resp=54 B/min, Pain=0, Mervin=10, Blanton=2 12:01:00 25 mcg FENTANYL given in lab by Kassie Billy RN via Peripheral IV. 12:02:59 Activated Clotting Time Drawn 12:03:53 Case End (Physician broke scrub) 12:04:23 HR=70 bpm, VXUX=864/64 mmhg, SpO2=96.0 %, Resp=56 B/min, Pain=0, Mervin=10, Blanton=2 12:06:32 A # 20 IV was noted in the Forearm (left). Grade = 0 1000 units/hr HEPARIN DRIP given in lab by Kassie Billy RN via Peripheral IV. Pump/Drip Medardo w = 10 ml/hr using 12:08:00 [place] [address] units in 250 ml. 12:09:00 ACT (Normal Range 90-180) = 333 5 mcg/kg/min DOPAMINE HCL given in lab by Kassie Billy RN via Peripheral IV. Pump/Drip Flow = 33.94 ml/hr 12:09:15 using D5W with a concentration of 800 mg in 500 ml. 12:09:24 RP=476 bpm, XTIR=554/81 mmhg, SpO2=96.0 %, Resp=14 B/min, Pain=0, Mervin=10, Blanton=2 12:12:43 dr salmeron arrivied 12:14:25 EP=858 bpm, SMEY=860/81 mmhg, SpO2=94.0 %, Resp=18 B/min, Pain=0, Mervin=10, Blanton=2 12:17:42 dr cadena scrubbed back in 12:19:15 A WIRE, ASAHI PROWATER 180CM 180CM was inserted via Fem Art (right). 12:19:26 HR=99 bpm, CVDA=443/78 mmhg, SpO2=98.0 %, Resp=44 B/min, Pain=0, Mervin=10, Blanton=2 12:20:54 A WIRE, CHOICE PT 182CM 182CM was inserted via Fem Art (right). 12:23:15 A BALLOON, 2.5 X 10MM EUPHORA 10MM was inserted over WIRE, CHOICE PT 182CM 182CM via the CI RC Dist. A BALLOON, 2.5 X 10MM EUPHORA 10MM over a WIRE, CHOICE PT 182CM 182CM in the CIRC Dist was infl ated using 12:23:39 a 30 ALBERT INDEFLATOR at 4 albert for 8 sec. 12:24:25 HR=96 bpm, CQWN=887/80 mmhg, SpO2=95.0 %, Resp=20 B/min, Pain=0, Mervin=10, Blanton=2 12:25:29 Balloon Removed. An STENT, 2.5 12 INTEGRITY 2.5 12 Bare Metal Stent was inserted through a XB 4.0 GUIDE CATHETER FR 6 over a 12:25:58 WIRE, CHOICE PT 182CM 182CM. A STENT, 2.5 12 INTEGRITY 2.5 12 was deployed using a 30 ALBERT INDEFLATOR at 10 atmospheres for 1 4 seconds in 12:26:12 the CIRC Dist. 12:28:52 NIBP STAT measurement started. 12:29:07 Delivery device removed 12:29:24 HR=90 bpm, IRHV=720/76 mmhg, SpO2=95.0 %, Resp=16 B/min, Pain=0, Mervin=10, Blanton=2 12:33:34 Case End (Physician broke scrub) 12:34:28 HR=92 bpm, XARU=580/78 mmhg, SpO2=97.0 %, Resp=17 B/min, Pain=0, Mervin=10, Blanton=2 12:37:44 42 mL (Bolus) AGGRASTAT BOLUS given in lab by Kassie Billy RN via Peripheral IV. Using [Solution Name]. 12:39:35 VH=569 bpm, QJPN=939/55 mmhg, TqU9=691.0 %, Resp=22 B/min, Pain=0, Mervin=10, Blanton=2 0.74 mL/hr AGGRASTAT DRIP given in lab by Kassie Billy, STEVEN via Peripheral IV. Pump/Drip Flow = 14.8 ml/hr 12:40:28 using NaCl .9 with a concentration of 12.5 mL in 250 ml. 0 units/hr DOPAMINE DRIP STOPPED given in lab by Kassie Billy, STEVEN. Pump/Drip Flow = 0 ml/hr using D5W with a 12:43:03 concentration of 50 in 100 ml. 12:44:26 HR=88 bpm, GNGD=407/85 mmhg, SpO2=97.0 %, Resp=17 B/min, Pain=0, Mervin=10, Blanton=2 Assessment: Final Case, HR=92 BPM, Rhythm=reg, YMLO=377/86 mmhg, Chest Pain=3, Edema=None, [place] r=Normal, Skin = Warm Right Pulses: Edgar Ped=3, Femoral=3 Left Pulses: Edgar Ped=3, Femoral=3 12:45:17 Lower Right Extremities: Color=Normal Lower Left Extremities: Color=Normal Neurological: State=Alert, Ox3, YEUNG Respiration: Resp=17 B/min, SpO2=98 %, O2=2 lpm 12:46:24 Catheter(s) removed without difficulty 12:46:28 In the Fem Art (right) the SHEATH, FR6 TERUMO (10CM) FR [address] by Den Magallon, MEDICAL EDUCATION COORDINATOR TECH2. 12:46:53 Sterile dressing applied to site 12:47:00 Cine recording checked. 12:47:01 Bedside Report will be given. 12:49:22 mGy is equal to or greater than 2000 mGy due to: Complex Procedure [id number] 12:49:31 HR=93 bpm, MAUT=013/77 mmhg, SpO2=99.0 %, Resp=15 B/min, Pain=0, Mervin=10, Blanton=2 12:49:45 Implantable Device card placed in patient's chart. 12:49:52 A Left Heart Cath was performed. 12:49:55 Clinical correlaton risk stratification. 12:54:28 HR=85 bpm, GQPR=512/85 mmhg, PyB8=199.0 %, Resp=16 B/min, Pain=0, Mervin=10, Blanton=2 12:59:27 HR=85 bpm, QOII=733/85 mmhg, SpO2=96.0 %, Resp=16 B/min, Pain=0, Mervin=10, Blanton=2 End Study - Contrast Media Used In Study Contrast Total Opened (mL) Total Used (mL) Total Wasted (mL) Omnipaque 350 285 285 0 End Study - Maximum Contrast Load Max Contrast Load (mL) 1131.3 End Study - Radiation Exposure Fluoro Time Fluoro Dose (mGy) Cine Dose (uGym2) (minutes) 30.6 [id number] [id number] End Study - Patient Disposition Complications Transferred To Interventional Outcome No Critical Care Bed successful
--- NOTE | 2018-08-16 13:34 | MR ---
cc: Skip Siu MD DATE: 08/15/2018 PROCEDURES PERFORMED: 1. Left ventriculography. 2. Coronary angiography. 3. PCI with bare metal stent x3 of the mid circumflex/obtuse marginal vessel. INDICATIONS FOR PROCEDURE: Non-STEMI, coronary artery disease, tobacco use, multiple cardiac risk factors. The patient was brought to the cardiac catheterization laboratory, prepped and draped in the usual sterile fashion. Then 10 mL of 1% lidocaine was used to locally anesthetize the right common femoral artery. A 4-Andorran sheath was placed in right common femoral artery. With 4-Andorran JR4 and JL4 catheters, we were able to perform left coronary angiography and left ventriculography. FINDINGS: LV pressure is 120-15-16, EF 60%. The right coronary artery is fibrocalcific fluoroscopically in the proximal, mid and distal segments. Right coronary artery is occluded just after the RV branch, the conus appears to vascularize a small segment of the RV which is hyperemic. The left main coronary artery is no significant disease in the graft. The left circumflex vessel has no significant disease angiographically. The first obtuse marginal vessel is a large 4.0 vessel with a long complex 90% to 95% stenosis just off the circumflex vessel. The LAD has mild disease in the proximal segment up to 20% angiographically. LAD is transapical. First and second diagonal arteries are small vessels with no significant disease angiographically. There are left to right collaterals to the right PDA. The right PDA is approximately 1 mm in diameter, fills to a point of occlusion in the proximal segment of the right PDA. A 6-Andorran sheath was exchanged for a 4-Andorran sheath as it was felt that the large obtuse marginal vessel was the culprit lesion given the anterolateral ST changes on the initial EKG. The patient was given 70 units per kilogram of heparin. ACT was 264. A 6-Andorran XP 4.0 guide and a 0.14 Prowater guidewire was placed into the distal obtuse marginal vessel. Lesion was predilated with a 2-5-10 Euphora balloon, 2 inflations of 9 atmospheres up to 20 seconds, I not able to deliver a 4-0 18 Integrity stent Therefore, the lesion was further predilated with a 3-0 15 noncompliant Euphora balloon. It took 10 atmospheres of pressure to fully deploy the balloon. I then placed a 4-0 18 Integrity stent at the lesion site. Stenosis went from 95% to 0% with ZACK 3 flow. Note, there was severe spasm just beyond the stent. I gave 200 mcg of intracoronary nitroglycerin, suggesting that the nitroglycerin had a systemic effect and a local effect. There was no relief of the spasm. I did think it was medically necessary to place a second stent there. I put the stent in position, but at that point in time, the spasm was completely relieved. There was ZACK 3 flow into the distal obtuse marginal vessel. There was no evidence of dissection. I did review the films with Dr. Olena Rdz, who agreed that there was no evidence of dissection. I scrubbed out of the case and within 2 minutes, the patient developed jaw pain and ST elevation in the inferior leads. Repeat imaging revealed staining and occlusion of the mid obtuse marginal vessel. I was able to get a wire into the distal obtuse marginal vessel in the more lateral branch. There appeared to be dissection; however, it was not clear whether this was dissection or spasm. There was significant staining however, just proximal to the bifurcation of the obtuse marginal vessel branches. I could not wire the more medial branch which was larger. I then placed a second 4-0 15 stent just distal to the previously placed stent without significant improvement in flow distally. I was not able to wire the more medial branch, which was larger with a Prowater wire after multiple attempts. Dr. Rdz was finishing up a case in the OR and he came down. We reviewed the films. We clearly between the 2 of us did not see any dissection after the initial stent was placed. We discussed doing emergent CABG. Decision was made to re-image. At that point, there was no flow beyond the mid to distal into the more distal branches. Therefore, I made an additional attempt and use a ChoICE PT guidewire and was able to get into the more medial branch. I dotted the vessel with 2-5-10 Euphora balloon, did one inflation, reestablished flow. I then placed a 2-5-12 Integrity stent at the lesion site in the more medial branch. This resulted in ZACK 3 flow into the branch. the medial branch and the lateral branch ST improved. The patient was, after 50 mcg of fentanyl was essentially sleeping. Also note that during poor flow into the distal vessel, the patient did require 10 mcg of dopamine. We were able to wean this off at the end of the procedure with systolic blood pressures at baseline 110 to 120 by A-line measurement. CONCLUSIONS: 1. Non ST-elevation myocardial infarction culprit 90% to 95% proximal stenosis and a large obtuse marginal vessel. 2. Otherwise, severe 2-vessel coronary artery disease in a right dominant system as detailed above. 3. Normal left ventricular systolic function with ejection fraction 65%. 4. Successful percutaneous coronary intervention bare metal stent x3 of the obtuse marginal vessel from 90% to 0% with ZACK-3 flow. 5. Successful percutaneous coronary intervention of the possible dissection versus spasm in the mid to distal obtuse marginal vessel. 6. An additional 1500 units of heparin was given. Final ACT at the end of the procedure was 330. 7. Recommend heparin drip, Aggrastat drip, aspirin 162 mg. We will observe the patient for 2 hours. If there is no evidence of hemodynamic instability or worsening chest pain, we will dose the patient with Effient 60 mg. 8. Recommend statin per NCEP guidelines. 9. We will hold RED inhibitor, beta shanna for at least first 24 hours to ascertain the patient is hemodynamically stable. 10. I strongly advised the patient to stop smoking. Skip Siu MD AWC/ct , 12:44 PM , 12:57 PM
[2018-08-16] MEDS ORDERED: Influenza (Quadrivalent) Vaccine 0.5 ML Syringe IM ONE (14:15)
[2018-08-16] MEDS ORDERED: Misc Info for Pharmacy OTHER STA (14:35)
--- NOTE | 2018-08-17 01:07 | ECG ---
Date Performed: 08/15/2018 Time Performed: 17:11:26 PTAGE: 58 years EKG: Sinus rhythm POSSIBLE LEFT ATRIAL ENLARGEMENT ST DEVIATION AND MODERATE T-WAVE ABNORMALITY, CONSIDER ANTEROLATERA L ISCHEMIA ABNORMAL ECG INTERPRETATION BASED ON A DEFAULT AGE OF 40 YEARS NO PREVIOUS TRACING DOCTOR: Fredi Avalos Interpretating Date/Time 08/17/2018 01:06:33
[2018-08-17] MEDS: Chlorhexidine Gluconate 2% 1 Pack (2 Cloths) TOPICAL SCH (03:03)
[2018-08-17 03:46] LABS: Baso # (Auto) 0.1 th/mm3 (0.0-0.2); Baso % (Auto) 0.5 % (0.0-2.0); Eos % (Auto) 0.1 % (0.0-4.0); Hematocrit 36.9 % (35.0-46.0); Hemoglobin 12.7 gm/dL (11.6-15.3); Lymph # (Auto) 2.1 th/mm3 (1.0-4.8); Lymph % (Auto) 18.9 % (9.0-44.0); Mean Corpuscular HGB Conc 34.4 % (32.0-36.0); Mean Corpuscular Hemoglobin 31.9 pg (27.0-34.0); Mean Corpuscular Volume 92.8 fL (80.0-100.0); Mean Platelet Volume 8.2 fL (7.0-11.0); Mono # (Auto) 1.1 th/mm3 (0.0-0.9); Neut # (Auto) 7.8 th/mm3 (1.8-7.7); Neut % (Auto) 70.5 % (16.0-70.0); Platelet Count 195 th/mm3 (150-450); Red Blood Count 3.98 mil/mm3 (4.00-5.30); Red Cell Distribution Width 14.1 % (11.6-17.2); White Blood Count 11.1 th/mm3 (4.0-11.0)
[2018-08-17 04:01] LABS: Calcium 7.9 mg/dL (8.5-10.1); Carbon Dioxide 21.7 meq/L (21.0-32.0); Potassium 3.9 meq/L (3.5-5.1)
[2018-08-17 04:16] LABS: Chol/HDL Ratio 3.13 Ratio; HDL Cholesterol 48.8 mg/dL (40.0-60.0)
[2018-08-17 04:40] LABS: Creatine Kinase MB 278.4 ng/mL (0.5-3.6)
[2018-08-17 04:49] LABS: CKMB Percent 7.9 % (0.0-4.0)
[2018-08-17 09:45] VITALS: O2SAT 95
--- NOTE | 2018-08-17 10:28 | P.PN ---
Subjective Interval history: Follow-up non-ST elevation [place]/tobaccoism August 17, 2018-patient seen and examined, she is status post left heart catheterization with PCI. Denies any chest pain or shortness of breath. Patient states he will be now quitting tobacco. No acute event overnight. Looking forward going home today Physical Exam Vital signs: Vital Signs 08/16/18 13:21 08/16/18 13:28 08/16/18 14:00 Temperature Pulse Rate 81 86 70 Respiratory Rate 22 19 Blood Pressure 122/83 102/61 Pulse Oximetry 95 88 L 08/16/18 15:00 08/16/18 16:00 08/16/18 17:00 Temperature Pulse Rate 59 L 68 60 Respiratory Rate 8 L 12 16 Blood Pressure 102/68 99/65 L 99/64 L Pulse Oximetry 98 98 96 08/16/18 18:00 08/16/18 19:00 08/16/18 20:00 Temperature 98.1 F Pulse Rate 63 62 84 Respiratory Rate 24 16 23 Blood Pressure 100/60 100/68 94/62 L Pulse Oximetry 97 96 95 08/16/18 20:43 08/16/18 21:00 08/16/18 22:00 Temperature Pulse Rate 79 67 Respiratory Rate 20 18 Blood Pressure 98/64 L 98/63 L Pulse Oximetry 96 97 95 08/16/18 23:00 08/17/18 00:00 08/17/18 00:40 Temperature 98.3 F Pulse Rate 63 69 70 Respiratory Rate 16 17 Blood Pressure 105/62 97/54 L Pulse Oximetry 95 95 08/17/18 01:00 08/17/18 01:02 08/17/18 02:00 Temperature Pulse Rate 65 64 Respiratory Rate 15 21 Blood Pressure 90/58 L 98/59 L Pulse Oximetry 97 97 96 08/17/18 03:00 08/17/18 04:00 08/17/18 05:00 Temperature 98.4 F Pulse Rate 67 64 69 Respiratory Rate 20 20 19 Blood Pressure 106/59 L 96/64 L 103/64 Pulse Oximetry 97 95 97 08/17/18 05:55 08/17/18 06:00 08/17/18 06:04 Temperature Pulse Rate 73 70 75 Respiratory Rate 22 22 Blood Pressure 85/61 L Pulse Oximetry 96 96 08/17/18 07:00 08/17/18 08:00 08/17/18 09:00 Temperature 97.6 F Pulse Rate 76 73 95 H Respiratory Rate 17 23 31 H Blood Pressure 88/63 L Pulse Oximetry 93 L 96 95 Intake & Output 08/16/18 08/17/18 08/17/18 18:59 06:59 18:59 Intake Total / 490 / 490 Balance 490 / 490 Weight 82.5 kg Intake: IV 47 / 47 250 / 250 Heparin/D5W 25,000 U/250 mL 25, 47 / 47 000 unit In 250 ml @ Per Protocol IV.CONT TITRATE PRN Rx #:[id number] Oral 40 / 40 240 / 240 Other: # Voids 3 Date of Last Bowel Movement 08/16/18 08/16/18 08/16/18 # Bowel Movements 1 Narrative: GENERAL: NAD SKIN: Warm and dry. HEAD: Atraumatic. Normocephalic. EYES: Pupils equal and round. No scleral icterus. No injection or drainage. ENT: No nasal bleeding or discharge. Mucous membranes pink and moist. NECK: Trachea midline. No JVD. CARDIOVASCULAR: Regular rate and rhythm. RESPIRATORY: No accessory muscle use. Clear to auscultation. Breath sounds equal bilaterally. GASTROINTESTINAL: Abdomen soft, non-tender, nondistended. Hepatic and splenic margins not palpable. MUSCULOSKELETAL: Extremities without clubbing, cyanosis, or edema. No obvious deformities. NEUROLOGICAL: Awake and alert. No obvious cranial nerve deficits. Motor grossly within normal limits. Five out of 5 muscle strength in the arms and legs. Normal speech. PSYCHIATRIC: Appropriate mood and affect; insight and judgment normal. Results - Labs CBC & Chem 7: 08/17/18 03:33 08/17/18 03:33 Laboratory Results - last 24 hr 08/16/18 08/17/18 08/17/18 10:12 03:33 03:33 WBC 11.1 H RBC 3.98 L Hgb 12.7 Hct 36.9 MCV 92.8 MCH 31.9 MCHC 34.4 RDW 14.1 Plt Count 195 MPV 8.2 Neut % (Auto) 70.5 H Lymph % (Auto) 18.9 [place] % (Auto) 10.0 H Eos % (Auto) 0.1 Baso % (Auto) 0.5 Neut # (Auto) 7.8 H Lymph # (Auto) 2.1 [place] # (Auto) 1.1 H Eos # (Auto) 0.0 Baso # (Auto) 0.1 WBC Differential . Differential Comment Auto diff final APTT 40.9 H D Sodium 140 Potassium 3.9 Chloride 109 H Carbon Dioxide 21.7 Anion Gap 9 BUN 11 Creatinine 0.68 Estimated GFR 89 Random Glucose 109 H Calcium 7.9 L D Total Creatine Kinase 3524 H CK-MB (CK-2) 278.4 H CK-MB (CK-2) % 7.9 H* Triglycerides 156 H Cholesterol 153 LDL Cholesterol, Calc 73 HDL Cholesterol 48.8 Cholesterol/HDL Ratio 3.13 - Procedures Left heart catheterization with stent placement Assessment and Plan - Plan 58-year-old female with Non-ST elevation [place] ACS ruled out per protocol serial cardiac enzyme and EKGs Status post left heart catheterization with PCI with bare metal stent x3 of the mid circumflex/obtuse marginal vessel. Currently on Effient, Brilinta 90 mg p.o. twice daily, aspirin 162 mg daily Heparin drip has been discontinued Appreciate input from cardiology Patient advised on tobacco cessation Tobacco abuse Tobacco counseling cessation provided
--- NOTE | 2018-08-17 10:33 | P.DS ---
Date of admission: 08/15/18 23:45 Primary care physician: No Primary Care Physician Brief History from admission: 58-year-old female with a history of tobacco abuse presented to the ED with complaints of chest pain. Patient states 1 hour prior to arrival to the ER she had constant, 10/10, substernal chest pain, pressure like, that radiated to her jaw with associated nausea, vomiting, headache and shortness of breath. At the ER she received 2 doses of sublingual nitroglycerin that resolved her pain. Currently on examination patient is pain-free. She is a pack a day smoker but is wanting to quit. She denies any recent illness no fever or chills. DS: Medications - Discharge Medications Prescriptions: aspirin 162 mg PO DAILY #30 tab atorvastatin [Lipitor] 10 mg PO DAILY #30 tab prasugrel [Effient] 10 mg PO DAILY #30 tab varenicline [Chantix Continuing Month Box] 1 mg PO BID #20 tab DS: Summary Hospital Course: Patient admitted with non-ST elevation [place] for which cardiology was consulted and she underwent left heart catheterization with stents x3 placement. Patient was initially started on heparin drip which was subsequently discontinued. She is currently on aspirin, Effient and Lipitor. She was advised on tobacco cessation. Prior to discharge, patient's conditions improved and vitals remained stable. She will follow up with cardiology. - Time Spent with Patient Total time spent providing and/or coordinating discharge services: Less than 30 minutes - Quality: VTE Deep Vein Thrombosis/Pulmonary Embolism Present on Admission: No Exam Vital signs: Vital Signs 08/16/18 13:21 08/16/18 13:28 08/16/18 14:00 Temperature Pulse Rate 81 86 70 Respiratory Rate 22 19 Blood Pressure 122/83 102/61 Pulse Oximetry 95 88 L 08/16/18 15:00 08/16/18 16:00 08/16/18 17:00 Temperature Pulse Rate 59 L 68 60 Respiratory Rate 8 L 12 16 Blood Pressure 102/68 99/65 L 99/64 L Pulse Oximetry 98 98 96 08/16/18 18:00 08/16/18 19:00 08/16/18 20:00 Temperature 98.1 F Pulse Rate 63 62 84 Respiratory Rate 24 16 23 Blood Pressure 100/60 100/68 94/62 L Pulse Oximetry 97 96 95 08/16/18 20:43 08/16/18 21:00 08/16/18 22:00 Temperature Pulse Rate 79 67 Respiratory Rate 20 18 Blood Pressure 98/64 L 98/63 L Pulse Oximetry 96 97 95 08/16/18 23:00 08/17/18 00:00 08/17/18 00:40 Temperature 98.3 F Pulse Rate 63 69 70 Respiratory Rate 16 17 Blood Pressure 105/62 97/54 L Pulse Oximetry 95 95 08/17/18 01:00 08/17/18 01:02 08/17/18 02:00 Temperature Pulse Rate 65 64 Respiratory Rate 15 21 Blood Pressure 90/58 L 98/59 L Pulse Oximetry 97 97 96 08/17/18 03:00 08/17/18 04:00 08/17/18 05:00 Temperature 98.4 F Pulse Rate 67 64 69 Respiratory Rate 20 20 19 Blood Pressure 106/59 L 96/64 L 103/64 Pulse Oximetry 97 95 97 08/17/18 05:55 08/17/18 06:00 08/17/18 06:04 Temperature Pulse Rate 73 70 75 Respiratory Rate 22 22 Blood Pressure 85/61 L Pulse Oximetry 96 96 08/17/18 07:00 08/17/18 08:00 08/17/18 09:00 Temperature 97.6 F Pulse Rate 76 73 95 H Respiratory Rate 17 23 31 H Blood Pressure 88/63 L Pulse Oximetry 93 L 96 95 Intake & Output 08/16/18 08/17/18 08/17/18 18:59 06:59 18:59 Intake Total 87 / 87 490 / 490 Balance 87 / 87 490 / 490 Weight 82.5 kg Intake: IV 47 / 47 250 / 250 Heparin/D5W 25,000 U/250 mL 25, 47 / 47 000 unit In 250 ml @ Per Protocol IV.CONT TITRATE PRN Rx #:[id number] Oral 40 / 40 240 / 240 Other: # Voids 3 Date of Last Bowel Movement 08/16/18 08/16/18 08/16/18 # Bowel Movements 1 Narrative: GENERAL: NAD SKIN: Warm and dry. HEAD: Atraumatic. Normocephalic. EYES: Pupils equal and round. No scleral icterus. No injection or drainage. ENT: No nasal bleeding or discharge. Mucous membranes pink and moist. NECK: Trachea midline. No JVD. CARDIOVASCULAR: Regular rate and rhythm. RESPIRATORY: No accessory muscle use. Clear to auscultation. Breath sounds equal bilaterally. GASTROINTESTINAL: Abdomen soft, non-tender, nondistended. Hepatic and splenic margins not palpable. MUSCULOSKELETAL: Extremities without clubbing, cyanosis, or edema. No obvious deformities. NEUROLOGICAL: Awake and alert. No obvious cranial nerve deficits. Motor grossly within normal limits. Five out of 5 muscle strength in the arms and legs. Normal speech. PSYCHIATRIC: Appropriate mood and affect; insight and judgment normal. Results Procedures completed during hospitalization: Left heart catheterization with stent placement Labs on day of discharge: Labs from last 24 hours 08/17/18 08/17/18 08/16/18 03:33 03:33 10:12 WBC 11.1 H RBC 3.98 L Hgb 12.7 Hct 36.9 MCV 92.8 MCH 31.9 MCHC 34.4 RDW 14.1 Plt Count 195 MPV 8.2 Neut % (Auto) 70.5 H Lymph % (Auto) 18.9 [place] % (Auto) 10.0 H Eos % (Auto) 0.1 Baso % (Auto) 0.5 Neut # (Auto) 7.8 H Lymph # (Auto) 2.1 [place] # (Auto) 1.1 H Eos # (Auto) 0.0 Baso # (Auto) 0.1 WBC Differential . Differential Comment Auto diff final APTT 40.9 H D Sodium 140 Potassium 3.9 Chloride 109 H Carbon Dioxide 21.7 Anion Gap 9 BUN 11 Creatinine 0.68 Estimated GFR 89 Random Glucose 109 H Calcium 7.9 L D Total Creatine Kinase 3524 H CK-MB (CK-2) 278.4 H CK-MB (CK-2) % 7.9 H* Triglycerides 156 H Cholesterol 153 LDL Cholesterol, Calc 73 HDL Cholesterol 48.8 Cholesterol/HDL Ratio 3.13 - Impressions ITS Impressions Chest X-Ray 08/15/18 17:22 CONCLUSION: Mild increased interstitial markings are noted consistent with acute or chronic interstitial disease. Clinical correlation is recommended. Discharge Plan - Discharge Disposition Patient Disposition: 01 Discharge Home - Discharge Condition Condition: Good - Discharge Order Discharge Orders: Discharge Order (Routine); Ordered 08/17/18 Ordered By: Bhupendra Rivera - Physicians Team Primary Care Provider: Primary Care Physici,No Attending Provider: Bhupendra Rivera Other Providers: Skip Siu MD ; [employer],Insurance ; Ronald Orourke MD
--- NOTE | 2018-08-17 11:20 | P.PNCA ---
Subjective Interval history: assymptomatic, states she feels "much better" than prior to admission and wants to go home Medications and Allergies Active Medications: Active Medications Acetaminophen (Tylenol) 650 mg PO Q4H PRN PRN Reason: Temp > 100.4 Al Hydroxide/Mg Hydroxide (Milk Of Magnesia Liq) 30 ml PO Q12H PRN PRN Reason: Mild Constipation Aspirin (Aspirin Chew) 162 mg PO DAILY ON LICENSE OF [facility] Bisacodyl (Dulcolax Supp) 10 mg RECTAL DAILY PRN PRN Reason: SEVERE CONSITIPATION Chlorhexidine Gluconate (Chlorhexidine 2% Cloth) 3 pack TOPICAL DAILY@0400 ON LICENSE OF [facility] Stop: 08/21/18 03:59 Last Admin: 08/17/18 03:03 Dose: Not Given Chlorhexidine Gluconate (Chlorhexidine 2% Cloth) 3 pack TOPICAL DAILY@0400 PRN PRN Reason: Extra cloth needed Stop: 08/21/18 03:59 Lactulose (Lactulose Liq) 30 ml PO DAILY PRN PRN Reason: SEVERE CONSITIPATION Nitroglycerin (Nitrostat Sl) 0.4 mg SL Q5M PRN PRN Reason: CHEST PAIN Ondansetron HCl (Zofran Inj) 4 mg IV.PUSH Q6H PRN PRN Reason: NAUSEA OR VOMITING Prasugrel (Effient) 10 mg PO DAILY ON LICENSE OF [facility] Senna/Docusate Sodium (Kristina-Colace) 1 tab PO BID ON LICENSE OF [facility] Last Admin: 08/16/18 20:12 Dose: Not Given Sennosides (Senokot) 17.2 mg PO Q12H PRN PRN Reason: Moderate Constipation Sodium Chloride (Ns Flush) 2 ml IV.FLUSH UNSCH PRN PRN Reason: FLUSH AFTER USING IV ACCESS Last Admin: 08/15/18 17:59 Dose: 2 ml Sodium Chloride (Ns Flush) 2 ml IV.FLUSH BID ON LICENSE OF [facility] Last Admin: 08/16/18 20:12 Dose: 2 ml Sodium Chloride (Ns Flush) 2 ml IV.FLUSH PRN PRN PRN Reason: FLUSH AFTER USING IV ACCESS Ticagrelor (Brilinta) 90 mg PO BID ON LICENSE OF [facility] Allergies Allergy/AdvReac Type Severity Reaction Status Date / Time codeine Allergy Mild NAUSEA Verified 08/15/18 17:11 Physical Exam Vital signs: Vital Signs 08/16/18 13:21 08/16/18 13:28 08/16/18 14:00 Temperature Pulse Rate 81 86 70 Respiratory Rate 22 19 Blood Pressure 122/83 102/61 Pulse Oximetry 95 88 L 08/16/18 15:00 08/16/18 16:00 08/16/18 17:00 Temperature Pulse Rate 59 L 68 60 Respiratory Rate 8 L 12 16 Blood Pressure 102/68 99/65 L 99/64 L Pulse Oximetry 98 98 96 08/16/18 18:00 08/16/18 19:00 08/16/18 20:00 Temperature 98.1 F Pulse Rate 63 62 84 Respiratory Rate 24 16 23 Blood Pressure 100/60 100/68 94/62 L Pulse Oximetry 97 96 95 08/16/18 20:43 08/16/18 21:00 08/16/18 22:00 Temperature Pulse Rate 79 67 Respiratory Rate 20 18 Blood Pressure 98/64 L 98/63 L Pulse Oximetry 96 97 95 08/16/18 23:00 08/17/18 00:00 08/17/18 00:40 Temperature 98.3 F Pulse Rate 63 69 70 Respiratory Rate 16 17 Blood Pressure 105/62 97/54 L Pulse Oximetry 95 95 08/17/18 01:00 08/17/18 01:02 08/17/18 02:00 Temperature Pulse Rate 65 64 Respiratory Rate 15 21 Blood Pressure 90/58 L 98/59 L Pulse Oximetry 97 97 96 08/17/18 03:00 08/17/18 04:00 08/17/18 05:00 Temperature 98.4 F Pulse Rate 67 64 69 Respiratory Rate 20 20 19 Blood Pressure 106/59 L 96/64 L 103/64 Pulse Oximetry 97 95 97 08/17/18 05:55 08/17/18 06:00 08/17/18 06:04 Temperature Pulse Rate 73 70 75 Respiratory Rate 22 22 Blood Pressure 85/61 L Pulse Oximetry 96 96 08/17/18 07:00 08/17/18 08:00 08/17/18 09:00 Temperature 97.6 F Pulse Rate 76 73 95 H Respiratory Rate 17 23 31 H Blood Pressure 88/63 L Pulse Oximetry 93 L 96 95 Intake & Output 08/16/18 08/17/18 08/17/18 18:59 06:59 18:59 Intake Total 87 / 87 490 / 490 Balance 87 / 87 490 / 490 Weight 82.5 kg Intake: IV 250 / 250 Heparin/D5W 25,000 U/250 mL , / 000 unit In 250 ml @ Per Protocol IV.CONT TITRATE PRN Rx #:[id number] Oral 40 / 40 240 / 240 Other: # Voids 3 Date of Last Bowel Movement 08/16/18 08/16/18 08/16/18 # Bowel Movements 1 - Constitutional no acute distress - Routine HEENT Exam Head: Present: normocephalic - Routine Neck Exam Present: supple - Routine Respiratory Exam Present: CTA bilaterally - Routine Cardiovascular Exam Present: S1, S2 - Routine Abdominal Exam Present: soft - Routine Extremities Exam Comments: no malgorzata Results 08/17/18 03:33 08/17/18 03:33 Cardiac Enzymes 08/15/18 08/15/18 08/15/18 Range/Units 17:30 17:30 20:48 AST 21 (15-37) U/L CK-MB (CK-2) (0.5-3.6) ng/mL Troponin I Less than 0.02 L 1.86 H* D (0.02-0.05) ng/mL B-Natriuretic Peptide 8 (0-100) pg/mL 08/16/18 08/17/18 Range/Units 00:43 03:33 AST (15-37) U/L CK-MB (CK-2) 278.4 H (0.5-3.6) ng/mL Troponin I 12.70 H* D (0.02-0.05) ng/mL B-Natriuretic Peptide (0-100) pg/mL Coagulation 08/15/18 08/15/18 08/16/18 Range/Units 17:30 23:51 05:04 PT 10.1 (9.8-11.6) sec APTT 27.6 52.5 H D (23.4-31.7) sec B-Natriuretic Peptide 8 (0-100) pg/mL 08/16/18 Range/Units 10:12 PT (9.8-11.6) sec APTT 40.9 H D (23.4-31.7) sec B-Natriuretic Peptide (0-100) pg/mL Lipids 08/17/18 Range/Units 03:33 Triglycerides 156 H (42-150) mg/dL Cholesterol 153 (120-200) mg/dL HDL Cholesterol 48.8 (40.0-60.0) mg/dL Cholesterol/HDL Ratio 3.13 Ratio CBC 08/15/18 08/16/18 08/17/18 Range/Units 17:30 05:04 03:33 WBC 7.8 11.4 H 11.1 H (4.0-11.0) th/mm3 RBC 4.64 4.42 3.98 L (4.00-5.30) mil/mm3 Hgb 14.7 14.4 12.7 (11.6-15.3) gm/dL Hct 42.3 41.3 36.9 (35.0-46.0) % Plt Count 248 222 195 (150-450) th/mm3 Neut # (Auto) 4.6 7.8 H (1.8-7.7) th/mm3 Lymph # (Auto) 2.3 2.1 (1.0-4.8) th/mm3 [place] # (Auto) 0.6 1.1 H (0.0-0.9) th/mm3 Eos # (Auto) 0.2 0.0 (0.0-0.4) th/mm3 Baso # (Auto) 0.1 0.1 (0.0-0.2) th/mm3 Comprehensive Metabolic Panel 08/15/18 08/17/18 Range/Units 17:30 03:33 Sodium 139 140 (136-145) meq/L Potassium 3.3 L 3.9 (3.5-5.1) meq/L Chloride 105 109 H (98-107) meq/L Carbon Dioxide 25.2 21.7 (21.0-32.0) meq/L BUN 18 11 (7-18) mg/dL Creatinine 0.83 0.68 (0.50-1.00) mg/dL Calcium 8.9 7.9 L D (8.5-10.1) mg/dL AST 21 (15-37) U/L ALT 28 (10-53) U/L Alkaline Phosphatase 63 (45-117) U/L Total Protein 7.0 (6.4-8.2) g/dL Albumin 3.6 (3.4-5.0) g/dL Intake and Output 08/16/18 08/17/18 08/17/18 22:59 06:59 14:59 Intake Total 40 / 40 490 / 490 Balance 40 / 40 490 / 490 Intake: IV 250 / 250 Oral 40 / 40 240 / 240 Other: # Voids 3 Date of Last Bowel Movement 08/16/18 08/16/18 08/16/18 # Bowel Movements 1 Weight 82.5 kg - Imaging and Cardiology Imaging: Impressions Chest X-Ray 08/15/18 17:22 CONCLUSION: Mild increased interstitial markings are noted consistent with acute or chronic interstitial disease. Clinical correlation is recommended. Assessment and Plan - Assessment (1) NSTEMI (non-ST elevated myocardial infarction) Code(s): I21.4 - Non-ST elevation (NSTEMI) myocardial infarction Status: Acute (2) CAD (coronary artery disease) Code(s): I25.10 - Atherosclerotic heart disease of [place] coronary artery without angina pectoris Status: Acute (3) Tobacco abuse Code(s): Z72.0 - Tobacco use Status: Acute - Plan 1.) CAD - pod # 1 s/p bms x 3 om1, assymptomatic, ok to dc on aspirin 162 mg qd , effient 10 mg qd, lipitor; beta shanna and irene held secondary to hypotension , sbp<100; patient instructed to call my office and make appointment bo; i explained to the patient that noncompliance with aspirin and effient could result in life threatening stent thrombosis, she understands and states she will fill rx today; i strongly advised her to stop smoking
[2018-08-17] MEDS: Senna/Docusate Sodium 8.6/50 MG Tablet PO SCH (12:04)
[2018-08-17 13:32] VITALS: TEMP 98.2
[2018-08-17 13:33] VITALS: BP 103/64; PULSE 72; RESP 17
--- NOTE | 2018-08-18 00:38 | ECG ---
Date Performed: 08/15/2018 Time Performed: 20:46:00 PTAGE: 58 years EKG: Sinus rhythm MODERATE ST DEPRESSION ABNORMAL ECG PREVIOUS TRACING : 08/15/2018 17.11 Since the previous tracing, no significant change noted DOCTOR: Fredi Avalos Interpretating Date/Time 08/18/2018 00:37:09
--- NOTE | 2018-08-18 00:55 | ECG ---
Date Performed: 08/16/2018 Time Performed: 00:46:13 PTAGE: 58 years EKG: Sinus rhythm MINIMAL ST DEPRESSION BORDERLINE ECG PREVIOUS TRACING : 08/15/2018 20.46 Since the previous tracing, no significant change noted DOCTOR: Fredi Avalos Interpretating Date/Time 08/18/2018 00:54:09
--- NOTE | 2018-08-18 02:01 | ECG ---
Date Performed: 08/17/2018 Time Performed: 08:57:13 PTAGE: 58 years EKG: Sinus rhythm ST DEVIATION AND MODERATE T-WAVE ABNORMALITY, CONSIDER INFERIOR ISCHEMIA ABNORMAL ECG PREVIOUS TRACING : 08/16/2018 00.46 Compared to previous tracing, ST/T wave changes now noted DOCTOR: Fredi Avalos Interpretating Date/Time 08/18/2018 02:01:05
== END 2018-08-17 18:25 | disposition home or self-care (01) ==
LOC: PHED 17:02 → PHEDA 17:02 → PH3 21:13 → HIMC 08-16 02:50
PROVIDERS: ADMIT Hospitalist; ATTEND Hospitalist